=== PATIENT | male | born 1985 | race African-American/Black ===

== ENCOUNTER 2017-02-22 16:11 | Emergency (ER) | payer BC, OTHER ==
[~2017-02-22] VITALS: Ht 188 cm; Wt 109.0 kg
[2017-02-22 22:00] VITALS: BP 121/87
== END 2017-02-22 22:13 | disposition home or self-care (01) ==
LOC: ER 20:18
DX: E11.65 Type 2 diabetes mellitus with hyperglycemia (principal); I10 Essential (primary) hypertension; E78.00 Pure hypercholesterolemia, unspecified; M79.672 Pain in left foot; M79.671 Pain in right foot
CPT/HCPCS: 82962; 99283

== ENCOUNTER 2023-10-07 18:23 | Emergency (ER) | payer BC, OTHER ==
[~2023-10-07] VITALS: Ht 185.4 cm; Wt 79.0 kg
[2023-10-07 18:38] VITALS: BP 124/81; PULSE 93; RESP 20; TEMP 97.8; O2SAT 97
[2023-10-07] MEDS: IBUPROFEN 600MG TABLET PO STA (21:24)
== END 2023-10-07 21:25 | disposition home or self-care (01) ==
LOC: ER 18:23
DX: M25.512 Pain in left shoulder (principal); E11.9 Type 2 diabetes mellitus without complications; X58.XXXA Exposure to other specified factors, initial encounter; Y93.89 Activity, other specified; Y92.89 Other specified places as the place of occurrence of the external cause; Y99.8 Other external cause status
CPT/HCPCS: 73030; 99283

== ENCOUNTER 2025-03-11 09:16 | Emergency (ER) | payer BC ==
[~2025-03-11] VITALS: Ht 185.4 cm; Wt 90.0 kg
[2025-03-11 09:20] VITALS: O2SAT 98
[2025-03-11 09:55] LABS: BASOPHILS % 0.3 % (0.0-2.0); EOSINOPHILS % 2.5 % (0.0-5.0); HEMATOCRIT. 29.6 % (42.0-52.0); HEMOGLOBIN. 10.0 g/dL (14.0-18.0); LYMPHOCYTES % 25.3 % (20.0-50.0); MEAN PLATELET VOLUME 7.9 fl (7.4-10.4); MONOCYTES % 8.8 % (2.0-8.0); NEUTROPHILS % 63.1 % (40.0-76.0); PLATELET 332 x1000/uL (130-400); RED BLOOD CELL COUNT 3.05 mill/uL (4.7-6.1); RED CELL DISTRIBUTION WIDTH 13.5 % (11.6-14.6)
[2025-03-11 10:14] LABS: CREATININE 1.4 mg/dL (0.6-1.3); UREA NITROGEN BLOOD 29 mg/dL (9-23)
[2025-03-11] MEDS: SODIUM CHLORIDE 0.9% 1,000 ML IV ONE (10:42)
[2025-03-11 11:07] LABS: CLARITY URINE CLEAR (CLEAR); COLOR URINE YELLOW (YELLOW); GLUCOSE URINE NEGATIVE (NEGATIVE); KETONES URINE NEGATIVE (NEGATIVE); LEUKOCYTE ESTERASE URINE NEGATIVE (NEGATIVE); NITRITE URINE NEGATIVE (NEGATIVE); OCCULT BLOOD URINE TRACE (NEGATIVE); PH URINE 5.5 (4.5-8.0); PROTEIN URINE 2+ (NEGATIVE); SPECIFIC GRAVITY URINE 1.027 (1.005-1.030); UROBILINOGEN URINE 1.0 E.U./dL (0.2-1.0)
[2025-03-11 11:22] LABS: SQUAMOUS EPITHELIAL CELL URINE 1+ /lpf (RARE/1+)
[2025-03-11 11:23] LABS: BACTERIA URINE TRACE
[2025-03-11 11:24] LABS: RBC URINE 0-2 /hpf (0-2); WBC URINE 0-2 /hpf (0-2)
[2025-03-11 11:25] LABS: MUCUS URINE TRACE /lpf (NONE/TRACE)
[2025-03-11] MEDS ORDERED: SULF1TAB48 MT (11:36)
[2025-03-11] MEDS ORDERED: TOPUD MT (11:36)
[2025-03-11] MEDS ORDERED: IBUP-1523 MT (11:36)
[2025-03-11 11:47] VITALS: BP 142/98; PULSE 87; RESP 18; TEMP 36.8; O2SAT 98
== END 2025-03-11 11:48 | disposition home or self-care (01) ==
LOC: ER 09:16
DX: L03.115 Cellulitis of right lower limb (principal); E11.9 Type 2 diabetes mellitus without complications; Z79.899 Other long term (current) drug therapy
CPT/HCPCS: 99284; 80048; 81003; 82962; 83605; 85025; 36415; 73630; J7030